=== PATIENT | female | born 1975 | race African-American/Black ===

== ENCOUNTER 2020-02-17 12:13 | Inpatient (IN) ==
[2020-02-17] MEDS ORDERED: DILTIAZEM 50 MG/10 ML VIAL IV ONE (12:32)
[2020-02-17] MEDS ORDERED: dilTIAZem Drip 125 MG/125 ML PREMIX IV ONE (12:34)
[2020-02-17] MEDS ORDERED: DILTIAZEM 50 MG/10 ML VIAL IV STA ×3 (12:37→13:49)
[2020-02-17] MEDS: dilTIAZem Drip 125 MG/125 ML PREMIX IV SCH (12:40)
[2020-02-17] MEDS ORDERED: ONDANSETRON 4 MG/2 ML VIAL ONE (12:41)
[2020-02-17] MEDS ORDERED: MORPHINE 4 MG/1 ML VIAL ONE (12:41)
[2020-02-17 13:00] LABS: Basophils % 0.5 % (0.0-0.8); Eosinophils # 0.4 10*3/uL (0.0-0.87); Eosinophils % 4.8 % (0.00-10.9); Hematocrit 41.2 VOL% (35.7-47.0); Immature Granulocytes % 0.4 %; Immature Granulocytes Absolute 0.03 #; Lymphocytes # 2.3 10*3/uL (1.4-4.0); Lymphocytes % 30.3 % (21.3-54.2); Mean Corpuscular HGB Conc 31.6 GM/DL (32-36); Mean Corpuscular Volume 76.2 FL (87-102); Mean Platelet Volume 9.6 FL (9.6-12.0); Monocytes % 4.4 % (1.7-12.7); Neutrophils % 59.6 % (38.7-73.9); Platelet Count 277 T/CUMM (130-400); Red Blood Count 5.41 MC/CUMM (3.8-5.5); Red Cell Distribution Width 15.6 % (9.3-17.3); White Blood Count 7.7 T/CUMM (4-12)
[2020-02-17] MEDS ORDERED: NITROGLYCERIN SL 0.4 MG TABLET SL PRN (13:06)
[2020-02-17] MEDS ORDERED: LORazepam 2 MG/1 ML VIAL IV STA (13:10)
[2020-02-17 13:11] LABS: PT Patient Result 10.7 SECS (9.6-12.2); Partial Thromboplastin Time 30.8 SECS (20.8-36.0)
[2020-02-17] MEDS ORDERED: FUROSEMIDE 40 MG/4 ML VIAL IV STA (13:11)
[2020-02-17] MEDS ORDERED: ENOXAPARIN 100 MG/ML SYRINGE SUBCUT ONE (13:14)
[2020-02-17] MEDS ORDERED: ENOXAPARIN 100 MG/ML SYRINGE SUBCUT STA (13:14)
[2020-02-17 13:27] LABS: Albumin 3.4 G/DL (3.4-5.0); Bilirubin,Total 0.5 MG/DL (0.2-1.0); Calcium 8.7 MG/DL (8.5-10.1); Thyroid Stimulating Hormone 0.76 uIU/ml (0.358-3.74); Total Protein 7.2 G/DL (6.4-8.3)
[2020-02-17] MEDS ORDERED: ACETAMINOPHEN 325 MG TABLET PO PRN (13:58)
[2020-02-17] MEDS ORDERED: ONDANSETRON 4 MG/2 ML VIAL IV PRN (13:58)
[2020-02-17] MEDS ORDERED: MORPHINE 4 MG/1 ML VIAL IV PRN (13:58)
[2020-02-17] MEDS ORDERED: PROMETHAZINE 25 MG/1 ML VIAL IM PRN (13:58)
[2020-02-17] MEDS ORDERED: METOPROLOL TARTRATE 25 MG TABLET PO STA (14:03)
[2020-02-17] MEDS ORDERED: clonazePAM 0.5 MG TABLET PO PRN (14:04)
[2020-02-17] MEDS ORDERED: MAGNESIUM SULF RIDER 2 GM in PREMIX 1 EACH IV STA (14:05)
[2020-02-17 14:29] LABS: Barbiturates Screen,Urine Negative (Negative); Benzodiazepines Screen,Urine Negative (Negative); Cannabinoid Screen,Urine Negative (Negative); Opiate Screen,Urine Positive (Negative); Phencyclidine Screen,Urine Negative (Negative)
[2020-02-17] MEDS ORDERED: DILTIAZEM 60 MG TABLET PO ONE (15:09)
[2020-02-17] MEDS ORDERED: MORPHINE 4 MG/1 ML VIAL IV STA (15:11)
[2020-02-17] MEDS ORDERED: ONDANSETRON 4 MG/2 ML VIAL IV STA (15:12)
[2020-02-17 15:15] LABS: ABG HCO3 26.2 MMOL/L (20-26); ABG Oxygen Saturation 99.6 % (95-100); ABG PCO2 42.2 MM HG (35-48); ABG PH 7.412 (7.35-7.45); ABG TCO2 23.5 MMOL/L (23-27)
[2020-02-17] MEDS: PANTOPRAZOLE 40 MG TABLET PO SCH (16:15)
[2020-02-17 16:50] VITALS: BP 131/100
[2020-02-17] MEDS: cefTRIAXone 1,000 MG in SYRINGE 1 EACH IV SCH (17:20)
[2020-02-17] MEDS ORDERED: AZITHROMYCIN INJ 500 MG in SODIUM CHLORIDE 0.9% 250 ML IV SCH (18:00)
[2020-02-17] MEDS ORDERED: DILTIAZEM 30 MG TABLET PO SCH (21:00)
[2020-02-17] MEDS ORDERED: METOPROLOL TARTRATE 25 MG TABLET PO SCH (21:00)
[2020-02-17] MEDS ORDERED: ENOXAPARIN 120 MG/0.8 ML SYRINGE SUBCUT SCH (21:00)
[2020-02-18] MEDS ORDERED: FLUCONAZOLE 150 MG TABLET PO ONE (02:30)
[2020-02-18 04:06] LABS: Basophils % 0.5 % (0.0-0.8); Eosinophils # 0.4 10*3/uL (0.0-0.87); Eosinophils % 4.9 % (0.00-10.9); Hematocrit 38.7 VOL% (35.7-47.0); Hemoglobin 11.9 GM/DL (12.0-16.0); Immature Granulocytes % 0.7 %; Immature Granulocytes Absolute 0.05 #; Lymphocytes # 2.5 10*3/uL (1.4-4.0); Lymphocytes % 32.1 % (21.3-54.2); Mean Corpuscular HGB Conc 30.7 GM/DL (32-36); Mean Corpuscular Volume 77.6 FL (87-102); Mean Platelet Volume 9.8 FL (9.6-12.0); Monocytes % 6.9 % (1.7-12.7); Neutrophils % 54.9 % (38.7-73.9); Platelet Count 273 T/CUMM (130-400); Red Blood Count 4.99 MC/CUMM (3.8-5.5); Red Cell Distribution Width 15.5 % (9.3-17.3); White Blood Count 7.7 T/CUMM (4-12)
[2020-02-18 04:26] LABS: Albumin 3.2 G/DL (3.4-5.0); Bilirubin,Total 0.7 MG/DL (0.2-1.0); Calcium 8.6 MG/DL (8.5-10.1); Osmolality,Calculated 274.7 MOS/KG (273-304); Risk Ratio 3.18; Total Protein 7.2 G/DL (6.4-8.3); VLDL CHOLESTEROL 16.6 MG/DL
[2020-02-18] MEDS: PANTOPRAZOLE 40 MG TABLET PO SCH (08:51)
[2020-02-18] MEDS ORDERED: APIXABAN 5 MG TABLET PO SCH (09:00)
[2020-02-18] MEDS ORDERED: DILTIAZEM CD 120 MG CAPSULE PO SCH (09:00)
[2020-02-18] MEDS ORDERED: PNEUMOCOCCAL VACCINE (13 VALENT) 0.5 ML SYRINGE IM ONE (09:00)
[2020-02-18] MEDS ORDERED: hydroCHLOROthiazide 12.5 MG CAPSULE PO SCH (09:00)
[2020-02-18] MEDS ORDERED: ASCORBIC ACID 500 MG TABLET PO SCH (09:00)
[2020-02-18] MEDS ORDERED: POTASSIUM CHLORIDE 20 MEQ TABLET PO ONE ×2 (09:17→18:16)
[2020-02-18 10:46] LABS: Troponin I 0.046 NG/ML (0.00-0.045)
[2020-02-18] MEDS: dilTIAZem Drip 125 MG/125 ML PREMIX IV SCH (14:01)
[2020-02-18] MEDS: cefTRIAXone 1,000 MG in SYRINGE 1 EACH IV SCH (17:35)
[2020-02-18 18:20] LABS: Troponin I < 0.015 NG/ML (0.00-0.045)
[2020-02-18] MEDS ORDERED: SIMVASTATIN 10 MG TABLET PO SCH (21:00)
[2020-02-18] MEDS ORDERED: PROPRANOLOL 20 MG TABLET PO SCH (21:00)
== END 2020-02-18 19:24 | disposition home or self-care (01) | DRG 309 ==
LOC: N.ED 12:13 → N.EDINP 12:13 → N.TELES 16:05 → N.ICU 16:05
PROVIDERS: ADMIT Family Medicine; ATTEND Family Medicine

== ENCOUNTER 2021-11-02 08:48 | Observation (INO) ==
[2021-11-02] MEDS ORDERED: ASPIRIN 325 MG TABLET PO STA (09:19)
[2021-11-02] MEDS ORDERED: ASPIRIN 325 MG TABLET ONE (09:21)
[2021-11-02] MEDS: NITROGLYCERIN SL 0.4 MG TABLET SL PRN ×2 (09:24→10:37)
[2021-11-02 09:46] LABS: Basophils % 0.7 % (0.0-0.8); Eosinophils # 0.4 10*3/uL (0.0-0.87); Eosinophils % 6.5 % (0.00-10.9); Hematocrit 39.7 VOL% (35.7-47.0); Hemoglobin 12.2 GM/DL (12.0-16.0); Immature Granulocytes % 0.5 %; Immature Granulocytes Absolute 0.03 #; Lymphocytes # 1.8 10*3/uL (1.4-4.0); Lymphocytes % 30.4 % (21.3-54.2); Mean Corpuscular HGB Conc 30.7 GM/DL (32-36); Mean Corpuscular Volume 76.1 FL (87-102); Mean Platelet Volume 11.3 FL (9.6-12.0); Monocytes % 7.5 % (1.7-12.7); Neutrophils % 54.4 % (38.7-73.9); Platelet Count 196 T/CUMM (130-400); Red Blood Count 5.22 MC/CUMM (3.8-5.5); Red Cell Distribution Width 14.9 % (9.3-17.3); White Blood Count 5.9 T/CUMM (4-12)
[2021-11-02 09:54] LABS: INR 0.9; PT Patient Result 10.7 SECS (10.5-12.0); Partial Thromboplastin Time 22.8 SECS (23.8-32.1)
[2021-11-02 10:01] LABS: Calcium 9.4 MG/DL (8.5-10.1); Osmolality,Calculated 270.8 MOS/KG (273-304); Potassium 4.9 MMOL/L (3.5-5.1)
[2021-11-02] MEDS ORDERED: ONDANSETRON 4 MG/2 ML VIAL IV PRN (12:19)
[2021-11-02] MEDS ORDERED: GLUCAGON 1 MG VIAL IM PRN (12:19)
[2021-11-02] MEDS: LACTATED RINGERS 1,000 ML IV SCH (12:30)
[2021-11-02] MEDS ORDERED: DILTIAZEM CD 120 MG CAPSULE PO SCH (12:30)
[2021-11-02] MEDS ORDERED: DEXTROSE 50% 25 GM/50 ML SYRINGE IV PRN (12:33)
[2021-11-02] MEDS: PANTOPRAZOLE 40 MG TABLET PO SCH ×2 (13:35→21:55)
[2021-11-02] MEDS: APIXABAN 5 MG TABLET PO SCH ×2 (13:50→21:55)
[2021-11-02] MEDS: VALSARTAN 80 MG TABLET PO SCH (17:00)
[2021-11-02 19:36] LABS: Basophils % 0.5 % (0.0-0.8); Eosinophils # 0.5 10*3/uL (0.0-0.87); Eosinophils % 8.1 % (0.00-10.9); Hemoglobin 12.1 GM/DL (12.0-16.0); Immature Granulocytes % 0.3 %; Immature Granulocytes Absolute 0.02 #; Lymphocytes # 2.7 10*3/uL (1.4-4.0); Lymphocytes % 43.1 % (21.3-54.2); Mean Corpuscular Volume 76.5 FL (87-102); Mean Platelet Volume 10.1 FL (9.6-12.0); Platelet Count 295 T/CUMM (130-400); Red Cell Distribution Width 14.7 % (9.3-17.3); White Blood Count 6.3 T/CUMM (4-12)
[2021-11-03 06:48] LABS: Albumin 3.3 G/DL (3.4-5.0); Bilirubin,Total 0.5 MG/DL (0.20-1.00); Osmolality,Calculated 275.5 MOS/KG (273-304); Potassium 3.5 MMOL/L (3.5-5.1); Risk Ratio 2.8; Total Protein 7.4 G/DL (6.4-8.2); VLDL Cholesterol 15.2 MG/DL
[2021-11-03] MEDS ORDERED: DILTIAZEM CD 180 MG CAPSULE PO SCH (09:00)
[2021-11-03] MEDS ORDERED: ASPIRIN EC 81 MG TABLET PO SCH (09:00)
[2021-11-03] MEDS: APIXABAN 5 MG TABLET PO SCH (09:41)
[2021-11-03] MEDS: PANTOPRAZOLE 40 MG TABLET PO SCH (09:41)
[2021-11-03] MEDS: VALSARTAN 80 MG TABLET PO SCH (09:41)
[2021-11-03] MEDS: LACTATED RINGERS 1,000 ML IV SCH (09:51)
[2021-11-03 14:02] VITALS: BP 152/100
[2021-11-03] MEDS ORDERED: MONTELUKAST 10 MG TABLET PO SCH (21:00)
[2021-11-03] MEDS ORDERED: ROSUVASTATIN 20 MG TABLET PO SCH (21:00)
== END 2021-11-03 14:15 | disposition home or self-care (01) ==
LOC: N.EDINP 08:48 → N.ED 08:48 → N.TELEN 21:19
PROVIDERS: ADMIT Internal Medicine; ATTEND Internal Medicine